=== PATIENT | male | born 1995 | race Caucasian/White ===

== ENCOUNTER → 2016-06-09 | Outpatient (CLI) | payer BC | LOC: RAD 12:33 | PROVIDERS: ATTEND Internal Medicine Gastroenterology | DX: R19.7 Diarrhea, unspecified (principal); R10.84 Generalized abdominal pain; K59.00 Constipation, unspecified | CPT/HCPCS: 74177 ==

== ENCOUNTER → 2016-09-21 | Outpatient (CLI) | payer BC ==
--- NOTE | 2016-09-21 10:56 | RADIOLOGY REPORT (SQ) ---
EXAM DESCRIPTION: U/S ABDOMEN LIMITED W/O DOP COMPLETED DATE/TIME: 09/21/2016 9:25 am REASON FOR STUDY: EPIGASTRIC PAIN, DIARRHEA R10.13 EPIGASTRIC PAIN R19.7 DIARRHEA, UNSPECIFIED COMPARISON: None. TECHNIQUE: Dynamic and static grayscale images acquired of the abdomen and recorded on PACS. Additio nal selected color Doppler and spectral images recorded. LIMITATIONS: None. FINDINGS: PANCREAS: No masses. Visualized pancreatic duct normal caliber. LIVER: 16.8 cm. Normal echotexture. LIVER VASCULATURE: Normal directional flow of the main portal vein and hepatic veins. GALLBLADDER: No stones. Normal wall thickness. No pericholecystic fluid. ULTRASOUND-DETECTED COLEMAN'S SIGN: Negative. INTRAHEPATIC DUCTS AND COMMON DUCT: Common bile duct is normal at 2 mm. INFERIOR VENA CAVA: Normal flow. AORTA: No aneurysm. RIGHT KIDNEY: Normal size, 11.7 cm. Normal echogenicity. No masses, no stones, no hydronephrosis. PERITONEAL AND RIGHT PLEURAL SPACE: No ascites or effusions. OTHER: No other significant findings. IMPRESSION: NORMAL RIGHT UPPER QUADRANT ULTRASOUND. TECHNICAL DOCUMENTATION: JOB ID: [id number] [employer]- All Rights Reserved
== END ==
LOC: RAD 08:55
PROVIDERS: ATTEND Internal Medicine Gastroenterology
DX: R10.13 Epigastric pain (principal); R19.7 Diarrhea, unspecified
CPT/HCPCS: 76705

== ENCOUNTER → 2016-10-19 | Outpatient (CLI) | payer BC ==
--- NOTE | 2016-10-19 13:47 | RADIOLOGY REPORT (SQ) ---
EXAM DESCRIPTION: NM HIDA SCAN WITH CCK COMPLETED DATE/TIME: 10/19/2016 10:30 am REASON FOR STUDY: DIARRHEA, ABD PAIN, GB DYSFUNCTION R10.13 EPIGASTRIC PAIN R19.7 DIARRHEA, UNSPEC IFIED COMPARISON: None. RADIONUCLIDE AND DOSE: DOSAGE RADIONUCLIDE: 5.4 millicuries Tc99m Mebrofenin. DOSAGE CCK: 1.5 micrograms. DOSAGE MORPHINE: Not required. The route of agent administration: Intravenous TECHNIQUE: Serial imaging right upper quadrant up to 60 minutes following injection of radionuclide. CCK injected after gallbladder visualized. LIMITATIONS: None. FINDINGS: LIVER: Normal visualization without areas of photopenia. INTRA AND EXTRAHEPATIC BILE DUCTS: Normal accumulation of activity. GALLBLADDER: Normal visualization. Calculated Ejection Fraction of 33.7%. Below the normal value of 35% or greater. PHYSICAL RESPONSE: Patients presenting complaint was reproduced. OTHER: No other significant finding. IMPRESSION: Borderline low ejection fraction. Symptoms reproduced with CCK injection. Findings may relate to a degree of biliary dyskinesia. TECHNICAL DOCUMENTATION: JOB ID: [id number] [employer]- All Rights Reserved
== END ==
LOC: RAD 08:03
PROVIDERS: ATTEND Internal Medicine Gastroenterology
DX: R19.7 Diarrhea, unspecified (principal); R10.9 Unspecified abdominal pain
CPT/HCPCS: 78227; A9537; Q9969; J2805

== ENCOUNTER → 2019-12-23 | Outpatient (CLI) | payer BC ==
[2019-12-23 12:42] VITALS: BP 115/79
--- NOTE | 2019-12-23 12:42 | ER RDC ASSESSMENT REPORT ---
Intake - In the Last 14 days Have you traveled outside [place]?: No Have you been in close contact with someone CONFIRMED: Yes Worked in Healthcare?: No - Symptoms Subjective Fever([place] feverish): No Chills: No Muscule Aches: No Runny Nose: No Sore Throat: Yes Cough (New or worsening chronic cough): Yes Shortness of breath: No Nausea or Vomiting: No Headache: Yes Abdominal Pain: No Diarrhea(3 or more loose stools in last 24 hours): No - Do you have any of the following Chronic lung disease: Asthma or emphysema or COPD: Yes Chronic Lung Disease Comment: Asthma Cystic Fibrosis: No Diabetes: No High Blood Pressure: No Cardiovascular Disease: No Chronic Kidney Disease: No Chronic Liver Disease: No Chronic blood disorder like Sickle Cell Disease: No Weak immune system due to disease or medication: No Neurologic condition that limits movement: No Developmental delay - Moderate to Severe: No Recent (within past 2 weeks) or current : No Morbid Obesity (>100 pounds over ideal weight): No - Objective Temperature: 98.1 F Pulse Rate: 77 Respiratory Rate: 16 Blood Pressure: 115/79 O2 Sat by Pulse Oximetry: 98 Objective: Patient is a well-appearing 24-year-old male, who presents today for COVID-19 screening. Disposition: Home; Selfcare General - General Stated Complaint: Upper respiratory symptoms Mode of Arrival: Ambulatory Information source: Patient Notes: The patient was evaluated during the global COVID-19 pandemic. That diagnosis was suspected/considered upon initial presentation. Their evaluation, treatment, and testing was consistent with current guidelines for patients who present with complaints or symptoms that may be related to COVID-19. Patient reports having close contact exposure to a COVID-19 lab confirmed positive individual. - HPI Patient complains to provider of: Upper respiratory symptoms Onset: Last week Onset/Duration: Constant, Persistent Quality of pain: No pain Severity: None Pain Level: Denies Associated symptoms: Nonproductive cough, Headache, Sore throat Exacerbated by: Denies Relieved by: Denies Similar symptoms previously: No Recently seen / treated by doctor: No Past Medical History - Social History Smoking Status: Current Every Day Smoker Cigarette use (# per day): Yes - Half pack per day Chew tobacco use (# tins/day): No Smoking Education Provided: Yes Frequency of alcohol use: Occasional Drug Abuse: None Occupation: Unemployed Lives with: Family Family History: Reviewed & Not Pertinent Patient has suicidal ideation: No Patient has homicidal ideation: No Pulmonary Medical History: Reports: Hx Asthma Physical Exam - General General appearance: Appears well In distress: None Notes: PHYSICAL EXAMINATION: GENERAL: Well-appearing and in no acute distress. HEAD: Atraumatic, normocephalic. EYES: sclera anicteric, conjunctiva are normal. ENT: nares patent. Moist mucous membranes. NECK: Normal range of motion, supple without lymphadenopathy. LUNGS: CTAB and equal. No wheezes rales or rhonchi. HEART: Regular rate and rhythm without murmurs. EXTREMITIES: Normal range of motion, no pitting edema. No cyanosis. BACK: No midline tenderness, no step-off or deformity. No CVA tenderness. NEUROLOGICAL: Cranial nerves grossly intact. Normal speech. Normal gait. PSYCH: Normal mood, normal affect. SKIN: Warm, Dry, normal color and turgor, no obvious lesions or rash noted. Diagnostic Results Laboratory Results: Patient advised at this time they are considered a Person Under Investigation (PUI) for the COVID-19 Coronavirus. They have been made aware it is currently taking 5-7 days to receive their results, and The Department will call to advise them of a POSITIVE result, and an [facility] sales team manager will call to advise of a NEGATIVE result. Patient Education/Counseling Counseling/Education: Patient presents with upper respiratory symptoms worrisome for possible COVID- 19. Patient does not have symptoms worrisome as an emergency such as difficulty breathing, shortness of breath, chest pain, pressure, confusion or cyanosis. Patient appears suitable for discharge. Patient's vital signs are stable and patient is nontoxic in appearance. Good return precautions have been discussed with patient, patient verbalized understanding and is agreeable with discharge plan of care at this time. Patient provided COVID-19 discharge instructions to include: As a person under investigation for COVID-19, the [place] department of Health and Human Services, division of public health advises you to adhere to the following guidance until your test results are reported to you. If your test result is positive, you will receive additional information from your provider and your local health department at that time. Remain at home until you are cleared by the health provider or public health authorities. Keep a log of visitors to your home, notify any visitors to your home of your isolation status. If you plan to move to a new address or leave the county, notify the local health department in your County. Call your doctor or seek care if you have an urgent medical need. Before seeking medical care, call ahead to get instructions from the provider before arriving at the medical office clinic or hospital. Notify them that you are being tested for the virus that causes COVID-19 so that arrangements can be made, as necessary, to prevent transmission to others in the healthcare setting. Next, notify the local health department in your county. If a medical emergency arises and you need to call 911, inform dispatch and the first responders that you are being tested for the virus that causes COVID-19. Next, notify the local health department in your county. Patient provided education on smoking cessation and the harmful effects of smoking, especially in the presence of Co-morbid conditions such as Hypertension, Diabetes, and/or other chronic illnesses. Patient verbalized understanding of smoking cessation education, and the increased health benefits of quitting. Guidance for worsening S/SX: For worsening symptoms, patient has been advised to contact their Primary Care Provider, or go to the nearest Emergency Department. RDC Discharge - Discharge Clinical Impression: COVID-19 Screening URI (upper respiratory infection) Qualifiers: URI type: unspecified URI Qualified Code(s): J06.9 - Acute upper respiratory infection, unspecified Condition: Stable Disposition: Home; Selfcare
== END ==
LOC: RDC 10:57
PROVIDERS: ATTEND Nurse Practitioner Family
DX: Z20.828 Contact with and (suspected) exposure to other viral communicable diseases (principal)
CPT/HCPCS: U0003; C9803; 87635; 99201